=== PATIENT | male | born 1955 | race African-American/Black ===

== ENCOUNTER 2021-05-31 17:35 | Inpatient (IN) | payer MEDICARE, OTHER ==
[~2021-05-31] VITALS: Ht 182.9 cm; Wt 89.8 kg
[~2021-05-31 17:35] MED LIST: AMLO10TA80 PO; ASPI-1160 PO; CLOP75TA15 PO; FURO-151 MT; INSLIS SUBCUT; LANTUSUD SUBCUT; LOSA50TA3 PO
[2021-05-31] MEDS ORDERED: FUROSEMIDE 20MG/2ML VIAL IVP ONE (19:15)
[2021-05-31 20:17] LABS: HEMATOCRIT. 39.6 % (42.0-52.0); HEMOGLOBIN. 11.6 g/dL (14.0-18.0); MEAN CORPUSCULAR HEMOGLOBIN 27.8 pg (28.0-32.0); MEAN CORPUSCULAR VOLUME 95.1 fL (80.0-94.0); MEAN PLATELET VOLUME 7.5 fl (7.4-10.4); PLATELET 218 x1000/uL (130-400); RED BLOOD CELL COUNT 4.16 mill/uL (4.7-6.1); RED CELL DISTRIBUTION WIDTH 16.5 % (11.6-14.6)
[2021-05-31 20:44] LABS: CHLORIDE 103 mEq/L (98-107)
[2021-05-31 20:55] LABS: PROTHROMBIN TIME 10.9 sec (9.6-11.0)
[2021-05-31 21:14] LABS: PLATELET ESTIMATE NORMAL
[2021-05-31] MEDS ORDERED: INSULIN REGULAR (HUMULIN R) 300UNITS/3ML VIAL IV ONE (21:15)
[2021-05-31] MEDS ORDERED: DEXTROSE 50% WATER 50ML SYRINGE IV ONE (21:15)
[2021-05-31] MEDS ORDERED: ASPIRIN 325MG EC TABLET PO ONE (21:15)
[2021-05-31] MEDS ORDERED: SODIUM POLYSTYRENE SULFONATE 15 G/60 ML BOT PO ONE (21:15)
[2021-06-01 09:09] LABS: CHLORIDE 103 mEq/L (98-107)
[2021-06-01 09:28] LABS: T4 FREE 0.92 ng/dL (0.76-1.46)
[2021-06-01] MEDS ORDERED: NALOXONE HCL 0.4MG/ML VIAL IV PRN (09:30)
[2021-06-01] MEDS: HYDROCODONE/ACETAMINOPHEN 5/325MG TABLET PO PRN ×2 (09:56→18:34)
[2021-06-01] MEDS ORDERED: SODIUM POLYSTYRENE SULFONATE 15 G/60 ML BOT PO SCH (10:00)
[2021-06-01] MEDS ORDERED: ACETAMINOPHEN 650MG SUPP PR PRN ×2 (18:00)
[2021-06-01] MEDS ORDERED: ONDANSETRON HCL 4MG/2ML INJ IV PRN (18:00)
[2021-06-01] MEDS ORDERED: NA PHOS,M-B/NA PHOS,DI-BA ENEMA 118ML PR PRN (18:00)
[2021-06-01] MEDS ORDERED: MAGNESIUM/ALUMINUM HYDROXIDE/SIMETHICONE 30ML UDC PO PRN (18:00)
[2021-06-01] MEDS ORDERED: ACETAMINOPHEN 325MG TABLET PO PRN (18:00)
[2021-06-01] MEDS ORDERED: CLONIDINE 0.1MG TABLET PO PRN (18:00)
[2021-06-01] MEDS ORDERED: ACETAMINOPHEN 650MG/20.3ML UDC GT PRN (18:00)
[2021-06-01] MEDS ORDERED: DIPHENHYDRAMINE 50MG/ML VIAL IV PRN (18:00)
[2021-06-01 18:03] LABS: HEMATOCRIT. 35.2 % (42.0-52.0); HEMOGLOBIN. 11.4 g/dL (14.0-18.0); MEAN CORPUSCULAR HEMOGLOBIN 27.8 pg (28.0-32.0); MEAN CORPUSCULAR VOLUME 86.1 fL (80.0-94.0); MEAN PLATELET VOLUME 7.3 fl (7.4-10.4); PLATELET 279 x1000/uL (130-400); RED BLOOD CELL COUNT 4.09 mill/uL (4.7-6.1); RED CELL DISTRIBUTION WIDTH 15.6 % (11.6-14.6)
[2021-06-01 18:19] LABS: CREATINE KINASE MB FRACTION 5.8 ng/mL (0.5-3.6)
[2021-06-01] MEDS ORDERED: IPRATROPIUM/ALBUTEROL 0.5-3(2.5)MG/3ML NEB HHN SCH (18:30)
[2021-06-01] MEDS: FUROSEMIDE 40MG/4ML VIAL IV SCH (18:35)
[2021-06-01 19:19] LABS: PLATELET ESTIMATE NORMAL
[2021-06-01] MEDS: MULTIVITAMINS,THER W-MINERALS TABLET PO SCH (20:15)
[2021-06-01] MEDS: ENOXAPARIN 40MG/0.4ML SYR SUBCUT SCH (20:17)
[2021-06-01] MEDS: ACETAMINOPHEN 325MG TABLET PO PRN (21:40)
[2021-06-02] VITALS (33 sets, daily range): BP systolic 101–162; BP diastolic 34–102
[2021-06-02 02:14] LABS: CREATINE KINASE MB FRACTION 5.8 ng/mL (0.5-3.6)
[2021-06-02] MEDS: HYDROCODONE/ACETAMINOPHEN 5/325MG TABLET PO PRN (06:27)
[2021-06-02] MEDS: FUROSEMIDE 40MG/4ML VIAL IV SCH (08:36)
[2021-06-02] MEDS: MULTIVITAMINS,THER W-MINERALS TABLET PO SCH (08:36)
[2021-06-02] MEDS ORDERED: CALCIUM CHLORIDE 1GM/10ML SYR IV ONE (08:52)
[2021-06-02] MEDS ORDERED: SODIUM BICARBONATE 8.4% 1 MEQ/ML 50ML SYR IV ONE (08:52)
[2021-06-02] MEDS ORDERED: EPINEPHRINE 0.1MG/ML (1:10,000) 10ML SYR ONE (08:52)
[2021-06-02] MEDS ORDERED: FUROSEMIDE 20MG/2ML VIAL IVP SCH (10:45)
[2021-06-02] MEDS ORDERED: IPRATROPIUM/ALBUTEROL 0.5-3(2.5)MG/3ML NEB HHN PRN (10:45)
[2021-06-02 11:25] LABS: HEMATOCRIT. 33.1 % (42.0-52.0); HEMOGLOBIN. 10.6 g/dL (14.0-18.0); MEAN CORPUSCULAR HEMOGLOBIN 27.7 pg (28.0-32.0); MEAN CORPUSCULAR VOLUME 86.1 fL (80.0-94.0); MEAN PLATELET VOLUME 7.8 fl (7.4-10.4); PLATELET 245 x1000/uL (130-400); RED BLOOD CELL COUNT 3.84 mill/uL (4.7-6.1); RED CELL DISTRIBUTION WIDTH 15.7 % (11.6-14.6)
[2021-06-02 11:33] LABS: CHLORIDE 101 mEq/L (98-107)
[2021-06-02 11:40] LABS: LDL CHOLESTEROL 73 mg/dL (5-100)
[2021-06-02 11:42] LABS: CREATINE KINASE 105 IU/L (39-308); HDL CHOLESTEROL 91 mg/dL (40-59)
[2021-06-02 12:18] LABS: BG BASE EXCESS -1.5 mmol/L (-2.0-2.0); BG CARBOXYHEMOGLOBIN 0.6 % (0.5-1.5); BG DEOXYHEMOGLOBIN 29.9 % (0.0-5.0); BG FRACTION INSPIRED OXYGEN 44; BG OXYGEN SATURATION 69.9 % (92.0-98.5); BG OXYHEMOGLOBIN 69.5 % (94.0-97.0); BG PCO2 74.6 mmHg (35.0-45.0); BG PH 7.193 (7.350-7.450); BG PO2 41.9 mmHg (75.0-100.0); BG SAMPLE SITE LEFT RADIAL; BG TOTAL HEMOGLOBIN 11.7 g/dL (12.0-18.0); BG VENT MODE NASAL CANNULA
[2021-06-02] MEDS: BLOOD SUGAR DIAGNOSTIC STRIP TEST SCH ×3 (12:27→21:55)
[2021-06-02] MEDS: INSULIN LISPRO 100 UNITS/ML SUBCUT SCH ×3 (12:46→21:54)
[2021-06-02] MEDS ORDERED: LIDOCAINE HCL 1% 20ML VIAL (Pyxis) INJ ONE (12:51)
[2021-06-02] MEDS ORDERED: FUROSEMIDE 40MG/4ML VIAL IVP NR (14:30)
[2021-06-02] MEDS ORDERED: HALOPERIDOL LACTATE 5MG/ML VIAL IM PRN (14:30)
[2021-06-02] MEDS ORDERED: HEPARIN 100 UNITS/1 ML VIAL IVF PRN (14:45)
[2021-06-02] MEDS: HYDRALAZINE HCL 25MG TABLET PO SCH ×2 (15:00→21:55)
[2021-06-02] MEDS ORDERED: NOREPINEPHRINE 32 MG in DEXT 5% WATER 218 ML IV PRN (17:30)
[2021-06-02] MEDS ORDERED: LORAZEPAM 2MG/ML CPJ IV PRN (17:45)
[2021-06-02 18:08] LABS: BG BASE EXCESS -3.2 mmol/L (-2.0-2.0); BG CARBOXYHEMOGLOBIN 0.1 % (0.5-1.5); BG DEOXYHEMOGLOBIN 1.9 % (0.0-5.0); BG FRACTION INSPIRED OXYGEN 100; BG METHEMOGLOBIN 0.2 % (0.0-1.5); BG OXYGEN SATURATION 98.1 % (92.0-98.5); BG OXYHEMOGLOBIN 97.8 % (94.0-97.0); BG PCO2 52.8 mmHg (35.0-45.0); BG PH 7.275 (7.350-7.450); BG PO2 121.4 mmHg (75.0-100.0); BG SAMPLE SITE LEFT RADIAL; BG TOTAL HEMOGLOBIN 11.4 g/dL (12.0-18.0); BG VENT MODE VENT - AC
[2021-06-02] MEDS: FENTANYL CITRATE/PF 2,500 MCG in SODIUM CHLORIDE 0.9% 200 ML IV PRN (18:21)
[2021-06-02] MEDS: MIDAZOLAM HCL 100 MG in SODIUM CHLORIDE 0.9% 80 ML IV PRN (18:22)
[2021-06-02 18:29] LABS: PLATELET ESTIMATE NORMAL
[2021-06-02] MEDS: IPRATROPIUM/ALBUTEROL 0.5-3(2.5)MG/3ML NEB HHN SCH (20:38)
[2021-06-02] MEDS: CARVEDILOL 3.125 MG TABLET PO SCH (21:00)
[2021-06-02 21:42] LABS: HEMATOCRIT. 33.5 % (42.0-52.0); HEMOGLOBIN. 10.9 g/dL (14.0-18.0); MEAN CORPUSCULAR HEMOGLOBIN 27.6 pg (28.0-32.0); MEAN CORPUSCULAR VOLUME 84.6 fL (80.0-94.0); MEAN PLATELET VOLUME 7.7 fl (7.4-10.4); PLATELET 248 x1000/uL (130-400); RED BLOOD CELL COUNT 3.95 mill/uL (4.7-6.1); RED CELL DISTRIBUTION WIDTH 15.3 % (11.6-14.6)
[2021-06-02 21:52] LABS: CHLORIDE 101 mEq/L (98-107)
[2021-06-02] MEDS: ENOXAPARIN 40MG/0.4ML SYR SUBCUT SCH (21:54)
[2021-06-02 22:31] LABS: PLATELET ESTIMATE NORMAL
[2021-06-03] VITALS (78 sets, daily range): BP systolic 100–148; BP diastolic 37–127
[2021-06-03] MEDS: IPRATROPIUM/ALBUTEROL 0.5-3(2.5)MG/3ML NEB HHN SCH ×6 (00:32→20:20)
[2021-06-03 05:09] LABS: HEMATOCRIT. 33.1 % (42.0-52.0); HEMOGLOBIN. 10.3 g/dL (14.0-18.0); MEAN CORPUSCULAR HEMOGLOBIN 27.2 pg (28.0-32.0); MEAN CORPUSCULAR VOLUME 86.9 fL (80.0-94.0); MEAN PLATELET VOLUME 7.8 fl (7.4-10.4); PLATELET 242 x1000/uL (130-400); RED BLOOD CELL COUNT 3.81 mill/uL (4.7-6.1); RED CELL DISTRIBUTION WIDTH 15.9 % (11.6-14.6)
[2021-06-03] MEDS: HYDRALAZINE HCL 25MG TABLET PO SCH ×3 (06:00→23:23)
[2021-06-03] MEDS: BLOOD SUGAR DIAGNOSTIC STRIP TEST SCH ×3 (06:24→16:30)
[2021-06-03] MEDS: INSULIN LISPRO 100 UNITS/ML SUBCUT SCH ×3 (06:55→17:00)
[2021-06-03 07:39] LABS: PLATELET ESTIMATE NORMAL
[2021-06-03] MEDS: FUROSEMIDE 40MG/4ML VIAL IV SCH ×2 (09:15→18:00)
[2021-06-03] MEDS: MULTIVITAMINS,THER W-MINERALS TABLET PO SCH (09:15)
[2021-06-03] MEDS: CARVEDILOL 3.125 MG TABLET PO SCH ×2 (09:15→23:23)
[2021-06-03] MEDS ORDERED: SODIUM BICARBONATE 4% (2.4MEQ) 5ML VIAL IV ONE (10:08)
[2021-06-03 10:55] LABS: BG BASE EXCESS 4.2 mmol/L (-2.0-2.0); BG DEOXYHEMOGLOBIN 9.8 % (0.0-5.0); BG FRACTION INSPIRED OXYGEN 70; BG HCO3 ACT 26.7 mmol/L (22.0-26.0); BG METHEMOGLOBIN 0.1 % (0.0-1.5); BG OXYGEN SATURATION 90.2 % (92.0-98.5); BG OXYHEMOGLOBIN 90.1 % (94.0-97.0); BG PCO2 32.8 mmHg (35.0-45.0); BG PH 7.529 (7.350-7.450); BG PO2 55.7 mmHg (75.0-100.0); BG SAMPLE SITE LEFT RADIAL; BG TOTAL HEMOGLOBIN 11.2 g/dL (12.0-18.0); BG TOTAL RESPIRATORY RATE 26 b/min; BG VENT MODE VENT - AC
[2021-06-03] MEDS: DEXTROSE 50% WATER 50ML SYRINGE IV PRN ×2 (13:37→17:42)
[2021-06-03] MEDS: ENOXAPARIN 40MG/0.4ML SYR SUBCUT SCH (23:24)
[2021-06-04] VITALS (75 sets, daily range): BP systolic 118–155; BP diastolic 58–86
[2021-06-04] MEDS: IPRATROPIUM/ALBUTEROL 0.5-3(2.5)MG/3ML NEB HHN SCH ×6 (00:12→20:45)
[2021-06-04] MEDS: BLOOD SUGAR DIAGNOSTIC STRIP TEST SCH ×4 (00:58→16:41)
[2021-06-04] MEDS: INSULIN LISPRO 100 UNITS/ML SUBCUT SCH ×5 (01:42→17:44)
[2021-06-04] MEDS: MIDAZOLAM HCL 100 MG in SODIUM CHLORIDE 0.9% 80 ML IV PRN (01:48)
[2021-06-04] MEDS: HYDRALAZINE HCL 25MG TABLET PO SCH ×3 (07:03→21:08)
[2021-06-04] MEDS: FUROSEMIDE 40MG/4ML VIAL IV SCH ×2 (08:43→16:26)
[2021-06-04] MEDS: MULTIVITAMINS,THER W-MINERALS TABLET PO SCH (08:44)
[2021-06-04] MEDS: CARVEDILOL 3.125 MG TABLET PO SCH ×2 (08:44→21:08)
[2021-06-04 10:15] LABS: BG CARBOXYHEMOGLOBIN 0.3 % (0.5-1.5); BG DEOXYHEMOGLOBIN 1.4 % (0.0-5.0); BG FRACTION INSPIRED OXYGEN 70; BG HCO3 ACT 28.4 mmol/L (22.0-26.0); BG METHEMOGLOBIN 0.2 % (0.0-1.5); BG OXYGEN SATURATION 98.6 % (92.0-98.5); BG OXYHEMOGLOBIN 98.1 % (94.0-97.0); BG PCO2 33.1 mmHg (35.0-45.0); BG PH 7.552 (7.350-7.450); BG SAMPLE SITE LEFT RADIAL; BG TOTAL HEMOGLOBIN 10.1 g/dL (12.0-18.0); BG VENT MODE VENT - AC
[2021-06-04 11:36] LABS: CLARITY URINE CLEAR (CLEAR); COLOR URINE YELLOW (YELLOW); KETONES URINE NEGATIVE (NEGATIVE); LEUKOCYTE ESTERASE URINE TRACE (NEGATIVE); NITRITE URINE NEGATIVE (NEGATIVE); OCCULT BLOOD URINE 1+ (NEGATIVE); PROTEIN URINE 2+ (NEGATIVE)
[2021-06-04] MEDS: PIPERACILLIN/TAZOBACTAM 3.375 G in DEXTROSE 5% WATER 50 ML IV SCH ×2 (11:49→21:09)
[2021-06-04] MEDS: ACETAMINOPHEN 325MG TABLET PO PRN (16:26)
[2021-06-04] MEDS: FENTANYL CITRATE/PF 2,500 MCG in SODIUM CHLORIDE 0.9% 200 ML IV PRN (18:18)
[2021-06-04] MEDS ORDERED: ENOXAPARIN 30MG/0.3ML SYR SUBCUT SCH (22:00)
[2021-06-05] VITALS (77 sets, daily range): BP systolic 106–155; BP diastolic 55–92
[2021-06-05] MEDS: IPRATROPIUM/ALBUTEROL 0.5-3(2.5)MG/3ML NEB HHN SCH ×6 (00:15→21:01)
[2021-06-05] MEDS: BLOOD SUGAR DIAGNOSTIC STRIP TEST SCH ×5 (00:28→23:19)
[2021-06-05] MEDS: INSULIN LISPRO 100 UNITS/ML SUBCUT SCH ×5 (00:31→23:22)
[2021-06-05 05:46] LABS: BASOPHILS % 0.5 % (0.0-2.0); EOSINOPHILS % 1.6 % (0.0-5.0); HEMATOCRIT. 30.4 % (42.0-52.0); HEMOGLOBIN. 10.2 g/dL (14.0-18.0); LYMPHOCYTES % 8.1 % (20.0-50.0); MEAN CORPUSCULAR HEMOGLOBIN 27.4 pg (28.0-32.0); MEAN CORPUSCULAR VOLUME 81.8 fL (80.0-94.0); MEAN PLATELET VOLUME 7.8 fl (7.4-10.4); MONOCYTES % 11.3 % (2.0-8.0); NEUTROPHILS % 78.5 % (40.0-76.0); PLATELET 235 x1000/uL (130-400); RED BLOOD CELL COUNT 3.71 mill/uL (4.7-6.1); RED CELL DISTRIBUTION WIDTH 15.9 % (11.6-14.6)
[2021-06-05] MEDS: HYDRALAZINE HCL 25MG TABLET PO SCH ×3 (06:36→21:46)
[2021-06-05] MEDS: MULTIVITAMINS,THER W-MINERALS TABLET PO SCH (08:09)
[2021-06-05] MEDS: PIPERACILLIN/TAZOBACTAM 3.375 G in DEXTROSE 5% WATER 50 ML IV SCH ×2 (08:09→20:21)
[2021-06-05] MEDS: FUROSEMIDE 40MG/4ML VIAL IV SCH ×2 (08:09→17:11)
[2021-06-05] MEDS: CARVEDILOL 3.125 MG TABLET PO SCH ×2 (08:09→20:20)
[2021-06-05] MEDS: ENOXAPARIN 40MG/0.4ML SYR SUBCUT SCH (12:32)
[2021-06-05] MEDS: HYDROCODONE/ACETAMINOPHEN 5/325MG TABLET PO PRN (13:00)
[2021-06-05] MEDS: MIDAZOLAM HCL 100 MG in SODIUM CHLORIDE 0.9% 80 ML IV PRN (21:40)
[2021-06-06] VITALS (91 sets, daily range): BP systolic 115–151; BP diastolic 59–88
[2021-06-06] MEDS: IPRATROPIUM/ALBUTEROL 0.5-3(2.5)MG/3ML NEB HHN SCH ×6 (01:54→20:44)
[2021-06-06] MEDS: HYDRALAZINE HCL 25MG TABLET PO SCH ×3 (05:37→21:17)
[2021-06-06] MEDS: BLOOD SUGAR DIAGNOSTIC STRIP TEST SCH ×4 (05:37→23:46)
[2021-06-06] MEDS: INSULIN LISPRO 100 UNITS/ML SUBCUT SCH ×4 (05:49→23:26)
[2021-06-06] MEDS: FUROSEMIDE 40MG/4ML VIAL IV SCH ×2 (08:57→17:14)
[2021-06-06] MEDS: ENOXAPARIN 40MG/0.4ML SYR SUBCUT SCH (08:57)
[2021-06-06] MEDS: PIPERACILLIN/TAZOBACTAM 3.375 G in DEXTROSE 5% WATER 50 ML IV SCH ×2 (08:57→21:19)
[2021-06-06] MEDS: MULTIVITAMINS,THER W-MINERALS TABLET PO SCH (08:58)
[2021-06-06] MEDS: CARVEDILOL 3.125 MG TABLET PO SCH ×2 (08:58→21:18)
[2021-06-06 11:06] LABS: HEMATOCRIT. 29.4 % (42.0-52.0); HEMOGLOBIN. 9.7 g/dL (14.0-18.0); MEAN CORPUSCULAR HEMOGLOBIN 27.5 pg (28.0-32.0); MEAN CORPUSCULAR VOLUME 83.4 fL (80.0-94.0); MEAN PLATELET VOLUME 8.1 fl (7.4-10.4); PLATELET 224 x1000/uL (130-400); RED BLOOD CELL COUNT 3.52 mill/uL (4.7-6.1)
[2021-06-06 15:09] LABS: PLATELET ESTIMATE NORMAL
[2021-06-06] MEDS: FENTANYL CITRATE/PF 2,500 MCG in SODIUM CHLORIDE 0.9% 200 ML IV PRN (16:53)
[2021-06-07] VITALS (94 sets, daily range): BP systolic 119–163; BP diastolic 32–95
[2021-06-07] MEDS: IPRATROPIUM/ALBUTEROL 0.5-3(2.5)MG/3ML NEB HHN SCH ×6 (00:26→20:42)
[2021-06-07] MEDS: INSULIN LISPRO 100 UNITS/ML SUBCUT SCH ×3 (05:16→18:08)
[2021-06-07] MEDS: HYDRALAZINE HCL 25MG TABLET PO SCH ×3 (05:17→21:27)
[2021-06-07] MEDS: BLOOD SUGAR DIAGNOSTIC STRIP TEST SCH ×3 (05:18→17:18)
[2021-06-07] MEDS: PIPERACILLIN/TAZOBACTAM 3.375G in DEXT 5% WATER 50ML IV SCH ×3 (08:37→21:28)
[2021-06-07] MEDS: FUROSEMIDE 40MG/4ML VIAL IV SCH ×2 (08:38→17:18)
[2021-06-07] MEDS: CARVEDILOL 3.125 MG TABLET PO SCH ×2 (08:39→21:28)
[2021-06-07] MEDS: ENOXAPARIN 40MG/0.4ML SYR SUBCUT SCH (08:39)
[2021-06-07] MEDS: MULTIVITAMINS,THER W-MINERALS TABLET PO SCH (08:39)
[2021-06-07 09:57] LABS: BASOPHILS % 0.6 % (0.0-2.0); EOSINOPHILS % 5.7 % (0.0-5.0); HEMATOCRIT. 28.8 % (42.0-52.0); HEMOGLOBIN. 9.6 g/dL (14.0-18.0); LYMPHOCYTES % 8.8 % (20.0-50.0); MEAN CORPUSCULAR HEMOGLOBIN 27.7 pg (28.0-32.0); MEAN CORPUSCULAR VOLUME 83.2 fL (80.0-94.0); MEAN PLATELET VOLUME 7.8 fl (7.4-10.4); MONOCYTES % 9.7 % (2.0-8.0); NEUTROPHILS % 75.2 % (40.0-76.0); PLATELET 242 x1000/uL (130-400); RED BLOOD CELL COUNT 3.46 mill/uL (4.7-6.1); RED CELL DISTRIBUTION WIDTH 15.9 % (11.6-14.6)
[2021-06-07 11:49] LABS: BG BASE EXCESS 10.1 mmol/L (-2.0-2.0); BG CARBOXYHEMOGLOBIN 0.3 % (0.5-1.5); BG DEOXYHEMOGLOBIN 4.4 % (0.0-5.0); BG FRACTION INSPIRED OXYGEN 40; BG HCO3 ACT 33.8 mmol/L (22.0-26.0); BG OXYGEN SATURATION 95.6 % (92.0-98.5); BG OXYHEMOGLOBIN 95.3 % (94.0-97.0); BG PCO2 41.8 mmHg (35.0-45.0); BG PH 7.525 (7.350-7.450); BG PO2 75.3 mmHg (75.0-100.0); BG SAMPLE SITE RIGHT RADIAL; BG TOTAL HEMOGLOBIN 10.9 g/dL (12.0-18.0); BG VENT MODE VENT - SIMV
[2021-06-07 15:10] LABS: BG BASE EXCESS 9.8 mmol/L (-2.0-2.0); BG CARBOXYHEMOGLOBIN 0.3 % (0.5-1.5); BG DEOXYHEMOGLOBIN 2.9 % (0.0-5.0); BG FRACTION INSPIRED OXYGEN 40; BG HCO3 ACT 34.7 mmol/L (22.0-26.0); BG METHEMOGLOBIN 0.3 % (0.0-1.5); BG OXYGEN SATURATION 97.1 % (92.0-98.5); BG OXYHEMOGLOBIN 96.5 % (94.0-97.0); BG PCO2 48.8 mmHg (35.0-45.0); BG PO2 92.7 mmHg (75.0-100.0); BG SAMPLE SITE RIGHT RADIAL; BG TOTAL HEMOGLOBIN 10.5 g/dL (12.0-18.0); BG VENT MODE VENT - SIMV
[2021-06-07 18:51] LABS: BG BASE EXCESS 6.9 mmol/L (-2.0-2.0); BG CARBOXYHEMOGLOBIN 0.2 % (0.5-1.5); BG DEOXYHEMOGLOBIN 8.3 % (0.0-5.0); BG FRACTION INSPIRED OXYGEN 40; BG HCO3 ACT 32.3 mmol/L (22.0-26.0); BG OXYGEN SATURATION 91.7 % (92.0-98.5); BG OXYHEMOGLOBIN 91.5 % (94.0-97.0); BG PCO2 49.5 mmHg (35.0-45.0); BG PH 7.432 (7.350-7.450); BG PO2 62.6 mmHg (75.0-100.0); BG SAMPLE SITE RIGHT RADIAL; BG TOTAL HEMOGLOBIN 11.1 g/dL (12.0-18.0); BG VENT MODE VENT - CPAP
[2021-06-08] VITALS (42 sets, daily range): BP systolic 112–178; BP diastolic 57–164
[2021-06-08] MEDS: BLOOD SUGAR DIAGNOSTIC STRIP TEST SCH ×4 (00:19→18:00)
[2021-06-08] MEDS: INSULIN LISPRO 100 UNITS/ML SUBCUT SCH ×4 (00:31→20:12)
[2021-06-08] MEDS: IPRATROPIUM/ALBUTEROL 0.5-3(2.5)MG/3ML NEB HHN SCH ×6 (00:39→20:00)
[2021-06-08] MEDS: HYDRALAZINE HCL 25MG TABLET PO SCH ×3 (05:35→22:00)
[2021-06-08] MEDS: PIPERACILLIN/TAZOBACTAM 3.375G in DEXT 5% WATER 50ML IV SCH ×3 (05:36→23:44)
[2021-06-08] MEDS: FUROSEMIDE 40MG/4ML VIAL IV SCH ×2 (08:51→16:55)
[2021-06-08] MEDS: CARVEDILOL 3.125 MG TABLET PO SCH ×2 (08:51→21:00)
[2021-06-08] MEDS: MULTIVITAMINS,THER W-MINERALS TABLET PO SCH (08:51)
[2021-06-08 10:05] LABS: BG CARBOXYHEMOGLOBIN 0.2 % (0.5-1.5); BG DEOXYHEMOGLOBIN 8.2 % (0.0-5.0); BG FRACTION INSPIRED OXYGEN 40; BG HCO3 ACT 30.8 mmol/L (22.0-26.0); BG METHEMOGLOBIN 0.2 % (0.0-1.5); BG OXYGEN SATURATION 91.8 % (92.0-98.5); BG OXYHEMOGLOBIN 91.4 % (94.0-97.0); BG PCO2 45.4 mmHg (35.0-45.0); BG PH 7.449 (7.350-7.450); BG PO2 62.1 mmHg (75.0-100.0); BG SAMPLE SITE LEFT RADIAL; BG VENT MODE NASAL CANNULA
[2021-06-08] MEDS: ENOXAPARIN 40MG/0.4ML SYR SUBCUT SCH (12:07)
[2021-06-08] MEDS: METOLAZONE 2.5MG TABLET PO SCH (12:07)
[2021-06-08] MEDS: HYDROCODONE/ACETAMINOPHEN 10/325MG TABLET PO PRN (23:45)
[2021-06-09] VITALS (29 sets, daily range): BP systolic 101–179; BP diastolic 72–120
[2021-06-09] MEDS: IPRATROPIUM/ALBUTEROL 0.5-3(2.5)MG/3ML NEB HHN SCH ×5 (04:00→21:57)
[2021-06-09] MEDS: BLOOD SUGAR DIAGNOSTIC STRIP TEST SCH ×5 (06:00→23:28)
[2021-06-09] MEDS: PIPERACILLIN/TAZOBACTAM 3.375G in DEXT 5% WATER 50ML IV SCH ×2 (06:00→21:39)
[2021-06-09] MEDS: HYDRALAZINE HCL 25MG TABLET PO SCH ×3 (06:00→21:27)
[2021-06-09] MEDS: INSULIN LISPRO 100 UNITS/ML SUBCUT SCH ×5 (06:00→23:29)
[2021-06-09] MEDS: HYDROCODONE/ACETAMINOPHEN 10/325MG TABLET PO PRN (06:59)
[2021-06-09] MEDS ORDERED: ATROPINE SULFATE 1MG/10ML SYR ONE (08:18)
[2021-06-09] MEDS ORDERED: EPINEPHRINE 0.1MG/ML (1:10,000) 10ML SYR ONE ×2 (08:18→09:42)
[2021-06-09] MEDS ORDERED: CALCIUM CHLORIDE 1GM/10ML SYR IV ONE (08:18)
[2021-06-09] MEDS: CARVEDILOL 3.125 MG TABLET PO SCH ×2 (09:00→20:25)
[2021-06-09] MEDS: ENOXAPARIN 40MG/0.4ML SYR SUBCUT SCH (09:00)
[2021-06-09] MEDS: FUROSEMIDE 40MG/4ML VIAL IV SCH ×2 (09:00→17:00)
[2021-06-09] MEDS: MULTIVITAMINS,THER W-MINERALS TABLET PO SCH (09:00)
[2021-06-09] MEDS: METOLAZONE 2.5MG TABLET PO SCH (09:00)
[2021-06-09] MEDS ORDERED: SODIUM BICARBONATE 8.4% 1 MEQ/ML 50ML SYR IV ONE (09:42)
[2021-06-09] MEDS ORDERED: METO2.5T2 PO (11:22)
[2021-06-09] MEDS ORDERED: COR3 PO (11:22)
[2021-06-09] MEDS ORDERED: LANTUSUD SUBCUT (11:24)
[2021-06-09] MEDS ORDERED: FENTANYL CITRATE/PF 2,500 MCG in SODIUM CHLORIDE 0.9% 200 ML IV PRN (15:15)
[2021-06-09] MEDS ORDERED: PROPOFOL 10MG/ML 100ML 100 ML IV PRN (15:15)
[2021-06-09] MEDS ORDERED: PHENYLEPHRINE 100 MG in DEXT 5% WATER 240 ML IV PRN (15:30)
[2021-06-09] MEDS ORDERED: NOREPINEPHRINE 32 MG in DEXT 5% WATER 218 ML IV PRN (15:45)
[2021-06-09] MEDS: EPINEPHRINE 10 MG in SODIUM CHLORIDE 0.9% 240 ML IV PRN (16:51)
[2021-06-09 17:52] LABS: BG BASE EXCESS -8.4 mmol/L (-2.0-2.0); BG CARBOXYHEMOGLOBIN 0.8 % (0.5-1.5); BG DEOXYHEMOGLOBIN 4.2 % (0.0-5.0); BG HCO3 ACT 18.1 mmol/L (22.0-26.0); BG METHEMOGLOBIN 0.2 % (0.0-1.5); BG OXYGEN SATURATION 95.8 % (92.0-98.5); BG OXYHEMOGLOBIN 94.8 % (94.0-97.0); BG PCO2 40.7 mmHg (35.0-45.0); BG PH 7.265 (7.350-7.450); BG PO2 97.1 mmHg (75.0-100.0); BG SAMPLE SITE RIGHT RADIAL; BG TOTAL HEMOGLOBIN 12.1 g/dL (12.0-18.0); BG VENT MODE VENT - AC
[2021-06-09 20:04] LABS: HEMATOCRIT. 38.7 % (42.0-52.0); HEMOGLOBIN. 11.7 g/dL (14.0-18.0); MEAN CORPUSCULAR HEMOGLOBIN 26.8 pg (28.0-32.0); MEAN CORPUSCULAR VOLUME 88.8 fL (80.0-94.0); MEAN PLATELET VOLUME 8.3 fl (7.4-10.4); PLATELET 429 x1000/uL (130-400); RED BLOOD CELL COUNT 4.36 mill/uL (4.7-6.1); RED CELL DISTRIBUTION WIDTH 16.5 % (11.6-14.6)
[2021-06-09 20:47] LABS: NUCLEATED RED BLOOD CELLS 6 /100 WBC; PLATELET ESTIMATE INCREASED
[2021-06-10] VITALS (93 sets, daily range): BP systolic 107–155; BP diastolic 71–96
[2021-06-10] MEDS: IPRATROPIUM/ALBUTEROL 0.5-3(2.5)MG/3ML NEB HHN SCH ×6 (03:04→20:40)
[2021-06-10] MEDS: EPINEPHRINE 10 MG in SODIUM CHLORIDE 0.9% 240 ML IV PRN (05:16)
[2021-06-10] MEDS: HYDRALAZINE HCL 25MG TABLET PO SCH ×3 (05:39→21:01)
[2021-06-10] MEDS: BLOOD SUGAR DIAGNOSTIC STRIP TEST SCH ×4 (05:39→23:51)
[2021-06-10] MEDS: INSULIN LISPRO 100 UNITS/ML SUBCUT SCH ×4 (05:44→23:53)
[2021-06-10 05:45] LABS: HEMATOCRIT. 36.2 % (42.0-52.0); HEMOGLOBIN. 11.5 g/dL (14.0-18.0); MEAN CORPUSCULAR HEMOGLOBIN 26.6 pg (28.0-32.0); MEAN PLATELET VOLUME 8.5 fl (7.4-10.4); PLATELET 385 x1000/uL (130-400)
[2021-06-10] MEDS: ACETYLCYSTEINE 100MG/ML 10% VIAL 4ML INH SCH ×2 (08:22→16:37)
[2021-06-10] MEDS: MULTIVITAMINS,THER W-MINERALS TABLET PO SCH (08:38)
[2021-06-10] MEDS: ENOXAPARIN 40MG/0.4ML SYR SUBCUT SCH (08:38)
[2021-06-10] MEDS: CARVEDILOL 3.125 MG TABLET PO SCH ×2 (08:39→20:46)
[2021-06-10 09:20] LABS: BG BASE EXCESS -0.1 mmol/L (-2.0-2.0); BG FRACTION INSPIRED OXYGEN 100; BG HCO3 ACT 22.8 mmol/L (22.0-26.0); BG PCO2 32.5 mmHg (35.0-45.0); BG PH 7.464 (7.350-7.450); BG PO2 123.8 mmHg (75.0-100.0); BG SAMPLE SITE LEFT RADIAL; BG TOTAL RESPIRATORY RATE 24 b/min; BG VENT MODE VENT - AC
[2021-06-10 16:55] LABS: PLATELET ESTIMATE NORMAL
[2021-06-11] VITALS (56 sets, daily range): BP systolic 108–144; BP diastolic 62–87
[2021-06-11] MEDS: ACETYLCYSTEINE 100MG/ML 10% VIAL 4ML INH SCH (00:01)
[2021-06-11] MEDS: IPRATROPIUM/ALBUTEROL 0.5-3(2.5)MG/3ML NEB HHN SCH ×4 (00:01→12:12)
[2021-06-11] MEDS: EPINEPHRINE 10 MG in SODIUM CHLORIDE 0.9% 240 ML IV PRN (01:47)
[2021-06-11] MEDS: HYDRALAZINE HCL 25MG TABLET PO SCH (05:26)
[2021-06-11] MEDS: BLOOD SUGAR DIAGNOSTIC STRIP TEST SCH (05:26)
[2021-06-11 05:27] LABS: HEMATOCRIT. 33.9 % (42.0-52.0); HEMOGLOBIN. 11.1 g/dL (14.0-18.0); MEAN CORPUSCULAR HEMOGLOBIN 26.6 pg (28.0-32.0); MEAN CORPUSCULAR VOLUME 81.3 fL (80.0-94.0); PLATELET 339 x1000/uL (130-400); RED BLOOD CELL COUNT 4.17 mill/uL (4.7-6.1)
[2021-06-11] MEDS: INSULIN LISPRO 100 UNITS/ML SUBCUT SCH (05:32)
[2021-06-11 08:15] LABS: BG BASE EXCESS 4.4 mmol/L (-2.0-2.0); BG CARBOXYHEMOGLOBIN 0.3 % (0.5-1.5); BG DEOXYHEMOGLOBIN 2.4 % (0.0-5.0); BG METHEMOGLOBIN 0.2 % (0.0-1.5); BG OXYGEN SATURATION 97.6 % (92.0-98.5); BG OXYHEMOGLOBIN 97.1 % (94.0-97.0); BG PO2 98.3 mmHg (75.0-100.0); BG SAMPLE SITE RIGHT RADIAL; BG TOTAL HEMOGLOBIN 11.5 g/dL (12.0-18.0); BG VENT MODE VENT - AC
[2021-06-11] MEDS ORDERED: ENOXAPARIN 30MG/0.3ML SYR SUBCUT SCH (09:00)
[2021-06-11] MEDS: CARVEDILOL 3.125 MG TABLET PO SCH (09:20)
[2021-06-11] MEDS: MULTIVITAMINS,THER W-MINERALS TABLET PO SCH (09:20)
[2021-06-11] MEDS ORDERED: MORPHINE SULFATE 4 MG/ML CPJ (NOT FOR IM USE) IV PRN (13:30)
[2021-06-11 13:33] LABS: PLATELET ESTIMATE NORMAL
[2021-06-11] MEDS ORDERED: MORPHINE SULFATE 4 MG/ML CPJ (NOT FOR IM USE) IV NR (14:00)
== END 2021-06-11 16:00 ==
LOC: ER 17:35 → MICUSO 21:23 → EDBEDREQ 21:25 → EDBEDREQTM 21:25 → 3WST 06-02 03:40 → MICUNO 06-02 17:25 → MICUSO 06-03 08:31 → 5EST 06-08 12:49 → 6EST 06-08 18:20 → MICUSO 06-09 15:45
PROVIDERS: ADMIT Family Medicine; ATTEND Family Medicine
PROC: 5A1955Z Respiratory Ventilation, Greater than 96 Consecutive Hours (ICD-10-PCS; principal; 2021-06-02)
PROC: 0BH17EZ Insertion of Endotracheal Airway into Trachea, Via Natural or Artificial Opening (ICD-10-PCS; 2021-06-02)
PROC: 02HV33Z Insertion of Infusion Device into Superior Vena Cava, Percutaneous Approach (ICD-10-PCS; 2021-06-02)
PROC: B548ZZA Ultrasonography of Superior Vena Cava, Guidance (ICD-10-PCS; 2021-06-02)
PROC: 5A09357 Assistance with Respiratory Ventilation, Less than 24 Consecutive Hours, Continuous Positive Airway Pressure (ICD-10-PCS; 2021-06-02)
PROC: 5A1945Z Respiratory Ventilation, 24-96 Consecutive Hours (ICD-10-PCS; 2021-06-02)
PROC: 0W993ZZ Drainage of Right Pleural Cavity, Percutaneous Approach (ICD-10-PCS; 2021-06-03)
PROC: 0BH17EZ Insertion of Endotracheal Airway into Trachea, Via Natural or Artificial Opening (ICD-10-PCS; 2021-06-09)
PROC: 5A12012 Performance of Cardiac Output, Single, Manual (ICD-10-PCS; 2021-06-09)
DX: I21.4 Non-ST elevation (NSTEMI) myocardial infarction (principal); N17.0 Acute kidney failure with tubular necrosis; J96.01 Acute respiratory failure with hypoxia; I50.43 Acute on chronic combined systolic (congestive) and diastolic (congestive) heart failure; I13.0 Hypertensive heart and chronic kidney disease with heart failure and stage 1 through stage 4 chronic kidney disease, or unspecified chronic kidney disease; E44.0 Moderate protein-calorie malnutrition; J91.8 Pleural effusion in other conditions classified elsewhere; N18.4 Chronic kidney disease, stage 4 (severe); I42.9 Cardiomyopathy, unspecified; Z66 Do not resuscitate; Z51.5 Encounter for palliative care; E11.22 Type 2 diabetes mellitus with diabetic chronic kidney disease; E78.5 Hyperlipidemia, unspecified; E87.5 Hyperkalemia; J44.9 Chronic obstructive pulmonary disease, unspecified; Z20.822 Contact with and (suspected) exposure to COVID-19; I46.9 Cardiac arrest, cause unspecified; F14.10 Cocaine abuse, uncomplicated; E11.51 Type 2 diabetes mellitus with diabetic peripheral angiopathy without gangrene; S90.821A Blister (nonthermal), right foot, initial encounter; X58.XXXA Exposure to other specified factors, initial encounter; S90.822A Blister (nonthermal), left foot, initial encounter; D64.9 Anemia, unspecified; Z79.899 Other long term (current) drug therapy; Z91.19 Patient's noncompliance with other medical treatment and regimen; Y93.89 Activity, other specified; Y92.89 Other specified places as the place of occurrence of the external cause; Y99.8 Other external cause status; Z79.82 Long term (current) use of aspirin; Z79.02 Long term (current) use of antithrombotics/antiplatelets; Z79.4 Long term (current) use of insulin; Z68.26 Body mass index [BMI] 26.0-26.9, adult; D72.829 Elevated white blood cell count, unspecified
CPT/HCPCS: 32555; 36415; 36600; 71045; 76937; 78580; 80048; 80053; 80061; 81003; 82040; 82375; 82550; 82553; 82805; 82962; 83036; 83605; 83615; 83880; 84439; 84443; 84478; 84484; 85025; 85379; 87070; 88108; 88312; 92610; 92950; 93005; 93308; 93970; 94002; 94003; 94640; 94660; 97161; 99291; C1725; J0461; J1630; J1650; J1815; J1940; J2060; J2250; J2270; J2543; J3010; J3490; J7050; J7060; J7608; U0003; U0005; A4315